=== PATIENT | male | born 1940 | race Caucasian/White ===

== ENCOUNTER 2016-06-13 19:01 | Observation (INO) | payer OTHER ==
[~2016-06-13] VITALS: Ht 175.3 cm; Wt 104.9 kg
[2016-06-13] VITALS (7 sets, daily range): BP systolic 113–159; BP diastolic 73–79; PULSE 85–97; RESP 18–20; TEMP 96–98; O2SAT 90–95
[~2016-06-13 19:01] MED LIST: ADVAI100I; ALBU.5I INH; AMLO2.5T PO; ASPI325T PO; CARV6.252 PO; COMBAER INH; COZA100T PO; FURO20TA PO; GLUCTAB PO; LIPI40TA PO; LUTE20CA PO; MOBI15TA PO; MUCI600T PO; OMEP20TA PO; POTA20PA PO; PRED20 PO; PRED5TAB PO; PREV30CA36 PO; TEMA30CA PO; VITA100L PO; VITA400C28 PO; ZITH250T PO
--- NOTE | 2016-06-13 19:39 | PD ---
HPI Chief Complaint: Respiratory Symptoms Time Seen by Provider: 19:29 Travel History International Travel<30 days: No Contact w/Intl Traveler<30days: No Traveled to known affect area: No History of Present Illness HPI This 75-year-old male is complaining of shortness of breath and cough. He has a history of COPD. He has not noted any fever. Yesterday he started coughing. He called his doctor and was called in a prescription for doxycycline and Tessalon Perles. He has taken this for 2 days and it has not helped. He continues to cough and coughed to the point that he vomits. He has been short of breath. He uses oxygen on an as needed basis at home and used it last night. He stopped smoking 45 years ago. He has a history of triple bypass surgery. He is not aware of fever or chills. He has some chest discomfort with coughing. He had previously been taken off of steroids because of blurred vision PFSH Past Medical History Arthritis: Yes COPD: Yes Coronary Artery Disease: Yes Diabetes: Yes Diminished Hearing: No GERD: Yes Hypertension: Yes Past Surgical History Appendectomy: Yes Cardiac Surgery: Yes (TRIPLE BIPASS IN 2004) Cholecystectomy: Yes Coronary Artery Bypass Graft: Yes Genitourinary Surgery: Yes (VASECTOMY) Tonsillectomy: Yes Social History Alcohol Use: No Tobacco Use: No Substance Use: No Allergies-Medications (Allergen,Severity, Reaction): Coded Allergies: Penicillin (Verified Allergy, Severe, Anaphylaxis, 11/29/13) Reported Meds & Prescriptions Reported Meds & Active Scripts Active Zithromax Z-King (Azithromycin) 250 Mg Tab 250 Mg PO DIRECTED 5 Days 500 MG (2 TABLETS) PO ON DAY 1, THEN 250 MG (1 TABLET) PO ON DAYS 2 TO 5. BEGIN ON 11/30/13 Prevacid (Lansoprazole) 30 Mg Capcr 30 Mg PO DAILY Deltasone (Prednisone) 20 Mg Tab 20 Mg PO DIRECTED 2 TABS PO DAILY FOR 3 DAYS,THEN 1 TAB PO DAILY FOR 3 DAYS. BEGIN ON 11/30/13 Reported Mucinex (Guaifenesin) 600 Mg Tabcr 600 Mg PO BID Combivent (Albuterol/Ipratropium) 14.7 Gm Aer 2 Puff INH Q4HPRN FOR WHEEZING Prednisone 5 Mg Tab 20 Mg PO BID Proventil Conc Ud 0.5% (2.5 Mg/0.5 Ml) (Albuterol Sulfate) 2.5 Mg/0.5 Ml Inha 2.5 Mg INH Q6HPRN Advair Diskus 100/50 (Salmeterol Xinafoate/Fluticasone) Salmeterol/Fluticasone 50/100mcg Inh 14 Inhalation .XX Vitamin B 12 (Cyanocobalamin) 100 Mcg Harvey 100 Mcg PO Mobic (Meloxicam) 15 Mg Tab 15 Mg PO DAILY Metformin Hcl (Metformin HCl) 500 Mg Tab 500 Mg PO BID Vitamin D 400 Unit Tab 400 Unit PO DAILY Aspirin 325 Mg Tab 325 Mg PO DAILY Lutein 20 Mg Cap 20 Mg PO DAILY Furosemide 20 Mg Tab 20 Mg PO DAILY Klor-Con (Potassium Chloride) 20 Meq Pow 10 Meq PO BID Lipitor (Atorvastatin Calcium) 40 Mg Tab 40 Mg PO DAILY Amlodipine Besylate 2.5 Mg Tab 5 Mg PO DAILY Temazepam 30 Mg Cap 30 Mg PO DAILY Cozaar (Losartan Potassium) 100 Mg Tab 100 Mg PO DAILY Omeprazole 20 Mg Tab 20 Mg PO BID Carvedilol 6.25 Mg Tab 6.25 Mg PO BID Review of Systems General / Constitutional: No: Fever, Chills Eyes: Positive: Diploplia, Blurred Vision HENT: No: Headaches, Vertigo Cardiovascular: No: Chest Pain or Discomfort, Palpitations Respiratory: Positive: Cough, Shortness of Breath, Wheezing Gastrointestinal: Positive: Vomiting Genitourinary: No: Urgency, Frequency Musculoskeletal: No: Myalgias, Arthralgias Skin: No Rash, No Itching Neurologic: No: Weakness Hematologic/Lymphatic: No: Easy Bruising Physical Exam Narrative GENERAL:Elderly male in moderate respiratory distress SKIN: Warm and dry. HEAD: Atraumatic. Normocephalic. EYES: Pupils equal and round. No scleral icterus. No injection or drainage. ENT: No nasal bleeding or discharge. Mucous membranes pink and moist. NECK: Trachea midline. No JVD. CARDIOVASCULAR: Regular rate and rhythm. No murmur appreciated. RESPIRATORY: There is accessory muscle use. Bilateral expiratory wheezes GASTROINTESTINAL: Abdomen soft, non-tender, nondistended. Hepatic and splenic margins not palpable. MUSCULOSKELETAL: No obvious deformities. No clubbing. No cyanosis. Trace edema. NEUROLOGICAL: Awake and alert. No obvious cranial nerve deficits. Motor grossly within normal limits. Normal speech. PSYCHIATRIC: Appropriate mood and affect; insight and judgment normal. Data Data Last Documented VS Vital Signs Date Time Temp Pulse Resp B/P Pulse Ox O2 Delivery O2 Flow Rate FiO2 06/13/16 19:15 94 20 153/78 92 Room Air 06/13/16 19:06 98.0 Orders Complete Blood Count With Diff (06/13/16 19:37) Comprehensive Metabolic Panel (06/13/16 19:37) B-Type Natriuretic Peptide (06/13/16 19:37) Troponin I (06/13/16 19:37) Urinalysis - C+S If Indicated (06/13/16 19:37) Iv Access Insert/Monitor (06/13/16 19:37) Electrocardiogram (06/13/16 19:37) Ecg Monitoring (06/13/16 19:37) Oximetry (06/13/16 19:37) Oxygen Administration (06/13/16 19:37) Chest, Single Ap (06/13/16 19:37) Sodium Chloride 0.9% Flush (Ns Flush) (06/13/16 19:45) Methylprednisolone So Succ Inj (Solumedr (06/13/16 19:45) Albuterol-Ipratropium Neb (Duoneb Neb) (06/13/16 19:45) Labs Laboratory Tests Test 06/13/16 06/13/16 20:20 20:25 White Blood Count 9.7 TH/MM3 Red Blood Count 5.03 MIL/MM3 Hemoglobin 15.8 GM/DL Hematocrit 46.0 % Mean Corpuscular Volume 91.4 FL Mean Corpuscular Hemoglobin 31.4 PG Mean Corpuscular Hemoglobin 34.3 % Concent Red Cell Distribution Width 13.6 % Platelet Count 207 TH/MM3 Mean Platelet Volume 8.2 FL Neutrophils (%) (Auto) 73.5 % Lymphocytes (%) (Auto) 11.6 % Monocytes (%) (Auto) 8.7 % Eosinophils (%) (Auto) 5.5 % Basophils (%) (Auto) 0.7 % Neutrophils # (Auto) 7.2 TH/MM3 Lymphocytes # (Auto) 1.1 TH/MM3 Monocytes # (Auto) 0.8 TH/MM3 Eosinophils # (Auto) 0.5 TH/MM3 Basophils # (Auto) 0.1 TH/MM3 CBC Comment DIFF FINAL Differential Comment Urine pH 6.0 Urine Protein NEG mg/dL Urine Glucose (UA) NEG mg/dL Urine Ketones NEG mg/dL Urine Occult Blood NEG Urine Nitrite NEG Urine Bilirubin NEG Urine Leukocyte Esterase NEG MDM Medical Decision Making Medical Screen Exam Complete: Yes Emergency Medical Condition: Yes Medical Record Reviewed: Yes Differential Diagnosis Differential includes pneumonia, CHF, COPD exacerbation Narrative Course X-ray does not show any infiltrates or evidence of congestive failure. His been given Solu-Medrol and repeated nebulizer treatments. After 3 treatments he does feel a bit better but he has persistent bilateral wheezing. Her saturation on 2 L nasal cannula is 94% Diagnosis Primary Impression: COPD exacerbation Disposition: DISCHARGE HOME Condition: Stable Mario Pink MD Jun 13, 2016 19:39
[2016-06-13] MEDS ORDERED: SODIUM CHLORIDE 0.9% FLUSH 5 ML FLUSH IVF PRN (19:45)
[2016-06-13] MEDS ORDERED: methylPREDNISolone SOD SUCC 125 MG/2 ML VIAL IVP ONE (19:45)
--- NOTE | 2016-06-13 19:54 | RADHPO ---
EXAM DATE/TIME: 06/13/2016 19:42 [facility] COMPARISON: CHEST SINGLE AP, November 29, 2013, 3:51. INDICATIONS : Short of breath. MEDICAL HISTORY : Hypertension. Emphysema. Asthma. SURGICAL HISTORY : Cardiac bypass. ENCOUNTER: Initial ACUITY: 1 week PAIN SCORE: 8/10 LOCATION: Bilateral chest FINDINGS: The lungs are clear without infiltrate, nodule, or mass. There is no appreciable pleural effusion fo r technique. Heart and mediastinum are unremarkable. There is evidence for prior median sternotomy. CONCLUSION: No acute cardiopulmonary disease. Isatu Haley MD on June 13, 2016 at 19:53 Board Certified Radiologist. This report was verified electronically.
[2016-06-13] MEDS: RESP: ALBUTEROL 2.5 MG/IPRATROPIUM 0.5 MG NEB (SCH) INH ×2 (20:11→20:14)
[2016-06-13 20:36] LABS: BLOOD, URINE NEG (NEG); GLUCOSE,URINE NEG (NEG); KETONE, URINE NEG (NEG); NITRITE,URINE NEG (NEG)
[2016-06-13 20:36] LABS: AUTOMATED NEUTROPHIL # 7.2 TH/MM3 (1.8-7.7); BASOPHIL # 0.1 TH/MM3 (0-0.2); BASOPHIL % 0.7 % (0.0-2.0); EOSINOPHIL # 0.5 TH/MM3 (0-0.4); EOSINOPHIL % 5.5 % (0.0-4.0); HEMO FLAGS DIFF FINAL; LYMPH % 11.6 % (9.0-44.0); LYMPHOCYTE # 1.1 TH/MM3 (1.0-4.8); MEAN CELL VOLUME 91.4 FL (80.0-100.0); MEAN CORPUSCULAR HEMOGLOBIN 31.4 PG (27.0-34.0); MEAN CORPUSCULAR HGB CONC 34.3 % (32.0-36.0); MONO % 8.7 % (0.0-8.0); NEUT % 73.5 % (16.0-70.0); PLATELET COUNT 207 TH/MM3 (150-450); RED BLOOD COUNT 5.03 MIL/MM3 (4.50-5.90); RED CELL DISTRIBUTION WIDTH 13.6 % (11.6-17.2); WHITE BLOOD COUNT 9.7 TH/MM3 (4.0-11.0)
[2016-06-13 20:48] LABS: CHLORIDE 102 MEQ/L (98-107); SODIUM (NA) 139 MEQ/L (136-145)
[2016-06-13] MEDS ORDERED: VENTAER INH ×2 (20:51)
[2016-06-13] MEDS ORDERED: TIZA2TAB PO (20:51)
[2016-06-13] MEDS ORDERED: TEMA30CA PO (20:51)
[2016-06-13] MEDS ORDERED: ALBU.5I NEB (20:51)
[2016-06-13] MEDS ORDERED: FURO20TA PO (20:51)
[2016-06-13] MEDS ORDERED: CARV6.252 PO (20:51)
[2016-06-13] MEDS ORDERED: POTA10TA8 PO (20:51)
[2016-06-13] MEDS ORDERED: METF500T PO (20:51)
[2016-06-13] MEDS ORDERED: GABA100C4 PO (20:51)
[2016-06-13] MEDS ORDERED: AMLO10TA2 PO (20:51)
[2016-06-13 20:52] LABS: ANION GAP 9 MEQ/L (5-15); BICARBONATE 27.9 MEQ/L (21.0-32.0); BLOOD UREA NITROGEN 12 MG/DL (7-18)
[2016-06-13 20:54] LABS: URINE COLOR YELLOW (YELLW/STRAW)
[2016-06-13 20:55] LABS: ALT (GPT) 20 U/L (12-78); AST (GOT) 12 U/L (15-37); GLOMERULAR FILTRATION RATE 59 ML/MIN (>89)
[2016-06-13 20:55] LABS: WBC, URINE 0-2 /hpf (0-5)
[2016-06-13 20:56] LABS: COMMENT (UR) CULT NOT INDICATED; CULTURE IF INDICATED CULT NOT INDICATED; MUCUS URINE FEW /lpf (OCC); RBC, URINE 0-3 /hpf (0-3); SQUAMOUS EPITHELIAL CELL URINE 0-5 /hpf (0-5)
[2016-06-13 20:57] LABS: TOTAL BILIRUBIN ADULT 0.8 MG/DL (0.2-1.0)
[2016-06-13 20:58] LABS: ALKALINE PHOSPHATASE 135 U/L (45-117)
[2016-06-13] MEDS ORDERED: NALOXONE HCL 0.4 MG/ML AMP IV PRN (21:15)
[2016-06-13] MEDS ORDERED: SODIUM CHLORIDE 0.9% FLUSH 5 ML FLUSH FLUSH PRN (21:15)
[2016-06-13] MEDS ORDERED: RESP: ALBUTEROL 2.5 MG/IPRATROPIUM 0.5 MG NEB (PRN) NEB (21:15)
[2016-06-13] MEDS ORDERED: LOSA100T PO (21:42)
[2016-06-13] MEDS ORDERED: AREDS PO (21:42)
[2016-06-13] MEDS ORDERED: ASPI81CH CHEW (21:42)
[2016-06-13] MEDS ORDERED: ATOR40TA16 PO (21:42)
[2016-06-13] MEDS ORDERED: OMEP20TA PO (21:42)
[2016-06-13] MEDS: RESP: ALBUTEROL 2.5 MG/IPRATROPIUM 0.5 MG NEB (SCH) NEB (22:06)
[2016-06-14] VITALS (8 sets, daily range): BP systolic 132–165; BP diastolic 82–100; PULSE 109–112; RESP 18–20; TEMP 97.8–98.9; O2SAT 92–95
[2016-06-14] MEDS: methylPREDNISolone SOD SUCC 40 MG/1 ML VIAL IV PUSH SCH ×2 (00:07→05:27)
[2016-06-14] MEDS ORDERED: TEMAZEPAM 15 MG CAP PO ONE (01:45)
[2016-06-14] MEDS: RESP: ALBUTEROL 2.5 MG/IPRATROPIUM 0.5 MG NEB (SCH) NEB ×4 (03:46→20:30)
[2016-06-14 05:43] LABS: AUTOMATED NEUTROPHIL # 5.8 TH/MM3 (1.8-7.7); BASOPHIL # 0.1 TH/MM3 (0-0.2); BASOPHIL % 0.9 % (0.0-2.0); EOSINOPHIL % 0.2 % (0.0-4.0); HEMATOCRIT 46.5 % (39.0-51.0); HEMO FLAGS DIFF FINAL; LYMPHOCYTE # 0.7 TH/MM3 (1.0-4.8); MEAN CELL VOLUME 91.3 FL (80.0-100.0); MEAN CORPUSCULAR HGB CONC 32.8 % (32.0-36.0); MONO % 0.6 % (0.0-8.0); NEUT % 88.3 % (16.0-70.0); PLATELET COUNT 207 TH/MM3 (150-450); RED BLOOD COUNT 5.09 MIL/MM3 (4.50-5.90); RED CELL DISTRIBUTION WIDTH 13.4 % (11.6-17.2); WHITE BLOOD COUNT 6.6 TH/MM3 (4.0-11.0)
[2016-06-14 05:55] LABS: BICARBONATE 26.2 MEQ/L (21.0-32.0)
[2016-06-14] MEDS ORDERED: guaiFENesin/CODEINE SYRUP 200 MG/20 MG/10 ML CUP PO PRN (08:45)
[2016-06-14] MEDS ORDERED: guaiFENesin/CODEINE SYRUP 200 MG/20 MG/10 ML CUP PO ONE (08:45)
[2016-06-14] MEDS ORDERED: INFLUENZA VIRUS VACCINE (QUADRIVALENT) 0.5 ML SYR IM ONE (09:00)
[2016-06-14] MEDS: PANTOPRAZOLE SOD 40 MG DELAYED RELEASE TAB PO SCH (09:26)
[2016-06-14] MEDS: ENOXAPARIN SODIUM 40 MG/0.4 ML SYRINGE SQ SCH (09:26)
[2016-06-14] MEDS: SODIUM CHLORIDE 0.9% FLUSH 5 ML FLUSH FLUSH SCH ×2 (09:28→20:09)
--- NOTE | 2016-06-14 10:41 | HHI.HP ---
[facility] Physician Ryan Pineda M.D. Admission Diagnosis COPD EXACERBATION Diagnoses: (1) COPD exacerbation Diagnosis: Principal Chief Complaint: Cough, shortness of breath, dyspnea Travel History International Travel<30 Days: No Contact w/Intl Traveler <30 Da: No Traveled to Known Affected Are: No History of Present Illness 75 year-old male with known history of hypertension, hyperlipidemia, coronary artery disease with three-vessel bypass, gastroesophageal reflux, anxiety, chronic obstructive pulmonary disease who presented to hospital because of 2 day history of cough, shortness of breath. Patient states that he started having symptoms 2 days ago where he was having a cough until he gagged and retched. He states that happened 2 times the first day and 3 times yesterday. He did call his primary medical doctor and they called in a prescription for doxycycline and Tessalon. Patient took the medications for approximately 1 day without any relief. Patient states that after he ate his dinner last night he laid down and had another coughing episode and he vomited up his food and had acute onset of severe shortness of breath last dyspnea so he came to the hospital for evaluation. Patient does have history of chronic affective pulmonary disease with chronic respiratory failure requiring home oxygen. He states that he does not use his oxygen unless his O2 saturations drop below 95. Patient denies any chest pain, diaphoresis, abdominal pain, extremity edema. He states that he does have procedure with his cardiovascular surgery next week for evaluation of his lower extremity vasculature. Review of Systems Constitutional: DENIES: Diaphoretic episodes, Fatigue, Fever, Weight gain, Weight loss, Chills, Dizziness, Change in appetite, Night Sweats Eyes: DENIES: Blurred vision, Diplopia, Eye inflammation, Eye pain, Vision loss , Double Vision Ears, nose, mouth, throat: DENIES: Vertigo, Nasal discharge, Throat pain, Ear Pain, Running Nose, Sinus Pain Respiratory: COMPLAINS OF: Shortness of breath, DENIES: Apneas, Cough, Snoring , Wheezing, Hemoptysis, Sputum production Cardiovascular: DENIES: Chest pain, Palpitations, Syncope, Dyspnea on Exertion , Lower Extremity Edema, Orthopnea Gastrointestinal: COMPLAINS OF: Vomiting, DENIES: Abdominal pain, Black stools , Bloody stools, Constipation, Diarrhea, Nausea, Difficulty Swallowing, Anorexia Neurologic: DENIES: Abnormal gait, Headache, Localized weakness, Paresthesias, Seizures, Speech Problems, Tremor, Poor Balance Past Family Social History Past Medical History Hypertension Hyperlipidemia Coronary artery disease status post CABG Peripheral vascular disease Chronic obstructive pulmonary disease History of tobacco use Chronic respiratory failure oxygen dependent Anxiety Past Surgical History Three-vessel coronary [place] [address] Weber Tonsillectomy Cholecystectomy Vasectomy Reported Medications Reported Meds & Active Scripts Active Reported [Areds] 2 Tab PO DAILY Aspirin 81 Mg Chew 81 Mg CHEW DAILY Omeprazole 20 Mg Tab 20 Mg PO DAILY Atorvastatin (Atorvastatin Calcium) 40 Mg Tab 40 Mg PO DAILY Losartan (Losartan Potassium) 100 Mg Tab 100 Mg PO DAILY Albuterol Neb (Albuterol Sulfate) 2.5 Mg/0.5 Ml Neb 2.5 Mg NEB TID NEB Note: The Albuterol Sulfate Inhalation Solution is concentrated and must be diluted. Read complete instructions carefully before using. Ventolin Hfa 18 GM Inh (Albuterol Sulfate) 90 Mcg/Act Aer 2 Puff INH Q4-6H PRN Furosemide 20 Mg Tab 20 Mg PO DAILY Potassium Chloride CR (Potassium Chloride) 10 Meq Tab 10 Meq PO BID Amlodipine (Amlodipine Besylate) 10 Mg Tab 10 Mg PO DAILY Metformin (Metformin HCl) 500 Mg Tab 500 Mg PO BIDPC With meals Carvedilol 6.25 Mg Tab 6.25 Mg PO BID Gabapentin 100 Mg Cap 100 Mg PO BID Temazepam 30 Mg Cap 30 Mg PO HS Tizanidine (Tizanidine HCl) 2 Mg Tab 2 Mg PO HS Allergies: Coded Allergies: Penicillin (Verified Allergy, Severe, Anaphylaxis, 11/29/13) Family History Reviewed is significant for father having heart disease and stroke. Social History Patient quit smoking 40 years ago, prior to that he smoked up to 3 pack a cigarettes a day since he was 4 years old. Denies any alcohol or illicit drugs Physical Exam Vital Signs Vital Signs Date Time Temp Pulse Resp B/P Pulse Ox O2 Delivery O2 Flow Rate FiO2 06/14/16 08:45 93 21 06/14/16 08:00 98.1 111 20 159/93 93 06/14/16 04:00 97.8 112 20 132/84 94 06/14/16 03:47 93 21 06/13/16 23:18 90 06/13/16 22:30 96.0 85 20 159/79 95 06/13/16 22:06 95 Nasal Cannula 2.00 06/13/16 22:05 91 152/79 94 Nasal Cannula 2 06/13/16 21:05 85 18 113/73 90 Nasal Cannula 2 06/13/16 19:35 94 20 92 Room Air 06/13/16 19:15 94 20 153/78 92 Room Air 06/13/16 19:15 20 92 Room Air 06/13/16 19:15 92 Room Air 06/13/16 19:06 98.0 97 20 132/78 Physical Exam GENERAL: Well-developed, well-nourished, in no acute distress. alert and orientated HEENT: Head is normocephalic without any lesions or masses noted. Facial features are symmetric. Eyes: Pupils equal round reactive to light. Extraocular muscles are intact. Conjunctivae were clear. Oropharyngeal: Pharynx without any erythema edema. Tongue is midline without deviation. Buccal mucosa is moist without any masses or lesions NECK: Supple without any masses. Trachea midline no deviation. No JVD, no bruits are appreciated CARDIAC: Regular rhythm, regular rate. S1/S2 are heard. No murmurs gallops or rubs. LUNGS: Clear to auscultation bilaterally. Expiratory wheezing with prolonged expiratory phase. Nonlabored breathing. ABDOMEN: Soft, nontender. Nondistended. Bowel sounds heard in all 4 quadrants. No organomegaly or masses. Negative rebound, negative guarding EXTREMITIES: No edema, pulses are equal bilaterally. No cyanosis or clubbing NEUROLOGY: Mood and affect appear appropriate. Cranial nerves II through XII grossly intact. Muscle strength 5/5 in upper and lower extremities bilaterally. Deep tendon reflexes are 2+ in upper and lower extremities bilaterally. Laboratory Laboratory Tests Test 06/13/16 06/13/16 06/14/16 20:20 20:25 05:22 White Blood Count 9.7 6.6 Red Blood Count 5.03 5.09 Hemoglobin 15.8 15.3 Hematocrit 46.0 46.5 Mean Corpuscular Volume 91.4 91.3 Mean Corpuscular Hemoglobin 31.4 30.0 Mean Corpuscular Hemoglobin 34.3 32.8 Concent Red Cell Distribution Width 13.6 13.4 Platelet Count 207 207 Mean Platelet Volume 8.2 7.9 Neutrophils (%) (Auto) 73.5 88.3 Lymphocytes (%) (Auto) 11.6 10.0 Monocytes (%) (Auto) 8.7 0.6 Eosinophils (%) (Auto) 5.5 0.2 Basophils (%) (Auto) 0.7 0.9 Neutrophils # (Auto) 7.2 5.8 Lymphocytes # (Auto) 1.1 0.7 Monocytes # (Auto) 0.8 0.0 Eosinophils # (Auto) 0.5 0.0 Basophils # (Auto) 0.1 0.1 CBC Comment DIFF FINAL DIFF FINAL Differential Comment Sodium Level 139 137 Potassium Level 4.0 4.0 Chloride Level 102 101 Carbon Dioxide Level 27.9 26.2 Anion Gap 9 10 Blood Urea Nitrogen 12 14 Creatinine 1.20 1.20 Estimat Glomerular Filtration 59 59 Rate Random Glucose 107 171 Calcium Level 8.6 8.6 Total Bilirubin 0.8 Aspartate Amino Transf 12 (AST/SGOT) Alanine Aminotransferase 20 (ALT/SGPT) Alkaline Phosphatase 135 Troponin I LESS THAN 0.02 B-Type Natriuretic Peptide 8 Total Protein 7.5 Albumin 3.7 Urine Color YELLOW Urine Turbidity CLEAR Urine pH 6.0 Urine Specific Beryl 1.021 Urine Protein NEG Urine Glucose (UA) NEG Urine Ketones NEG Urine Occult Blood NEG Urine Nitrite NEG Urine Bilirubin NEG Urine Leukocyte Esterase NEG Urine RBC 0-3 Urine WBC 0-2 Urine Squamous Epithelial 0-5 Cells Urine Mucus FEW Microscopic Urinalysis Comment CULT NOT INDICATED Result Diagram: 06/14/1652106/14/16521 Imaging Last Impressions Chest X-Ray 06/13/161936 Signed Impressions: Service Date/Time: June 19:42 - CONCLUSION: No acute cardiopulmonary disease. Isatu Haley MD Assessment and Plan Assessment and Plan Chronic obstructive pulmonary disease with exacerbation: Patient does have history of chronic respiratory failure with home oxygen. She does not use it on a regular basis. Patient placed in observation for continued treatment in the hospital. Patient started on Solu-Medrol 40 mg every 6 hours, will continue this as he still has wheezing on exam and is still dyspneic.. Continue nebulizer treatments, start Levaquin. Continue O2 supplementation maintain O2 sats greater 92%. Continue Robitussin-AC for cough suppression. Patient requires admission as he is failed attempt at outpatient treatment for COPD. Hypertension, hyperlipidemia, coronary artery disease: Resume home medications Prophylaxis: DVT prevention: Subcutaneous Lovenox, GI protection secondary to steroids use, Protonix Written by Sanjeev Vegas PA-C, acting as scribe for Dr. Kumari on 06/14/16 at 11:30. The documentation accurately reflects the work and decisions performed face-to- face by Dr. Kumari on 06/14/16 at 11:30. Sanjeev Vegas Jun 14, 2016 10:40 Genesis Kumari MD Jun 14, 2016 13:02
[2016-06-14] MEDS: LEVOFLOXACIN 500 MG TAB PO SCH (11:00)
[2016-06-14] MEDS ORDERED: PANTOPRAZOLE SODIUM 40 MG VIAL IV PUSH ONE (20:00)
[2016-06-14] MEDS ORDERED: cloNIDine HCL 0.1 MG TAB PO ONE (20:00)
[2016-06-14] MEDS: predniSONE 20 MG TAB PO SCH (20:09)
[2016-06-14] MEDS ORDERED: TEMAZEPAM 15 MG CAP PO PRN (21:00)
[2016-06-14] MEDS ORDERED: TEMAZEPAM 15 MG CAP PO SCH (21:00)
--- NOTE | 2016-06-14 23:19 | EKG ---
Date Performed: 06/13/2016 Time Performed: 19:50:44 PTAGE: 75 years EKG: Sinus rhythm Low QRS voltages in precordial leads Borderline ECG PREVIOUS TRACING : 11/29/2013 02.54 DOCTOR: Esther Levine Interpretating Date/Time 06/14/2016 23:15:52
[2016-06-15 00:50] VITALS: BP 132/85; PULSE 92; RESP 20; TEMP 96.3; O2SAT 95
[2016-06-15] MEDS: RESP: ALBUTEROL 2.5 MG/IPRATROPIUM 0.5 MG NEB (SCH) NEB (04:04)
[2016-06-15 04:38] VITALS: BP 138/79; PULSE 89; RESP 18; TEMP 97; O2SAT 95
[2016-06-15] MEDS ORDERED: ACETAMINOPHEN 325 MG TAB PO PRN (07:15)
[2016-06-15] MEDS ORDERED: MAGNESIUM HYDROXIDE SUSP 30 ML CUP PO PRN (07:15)
[2016-06-15] MEDS ORDERED: DOCUSATE SODIUM 100 MG CAP PO PRN (07:15)
[2016-06-15 08:00] VITALS: BP 157/86; PULSE 89; RESP 20; TEMP 97.9; O2SAT 98
--- NOTE | 2016-06-15 08:10 | HHI.PR ---
Subjective Remarks Patient seen and examined with Dr. Kumari today. Follow-up on COPD. Patient states that he is 100% better today. Patient did have some epigastric discomfort last evening, he was given Protonix IV with resolution of his discomfort. Objective Vitals Vital Signs Date Time Temp Pulse Resp B/P Pulse Ox O2 Delivery O2 Flow Rate FiO2 06/15/16 04:38 97.0 89 18 138/79 95 06/15/16 00:50 96.3 92 20 132/85 95 06/14/16 21:09 98.9 110 18 165/100 94 06/14/16 20:30 93 Nasal Cannula 2.00 06/14/16 16:00 98.8 109 20 153/83 95 06/14/16 12:12 98.0 112 20 145/82 92 06/14/16 08:45 93 21 I/O 06/14/16 06/14/16 06/14/16 06/15/16 06/15/16 06/15/16 07:00 15:00 23:00 07:00 15:00 23:00 Intake Total 730 ml 240 ml 0 ml Balance 730 ml 240 ml 0 ml Intake Oral 730 ml 240 ml IV Total 0 ml # Voids 2 3 # Bowel Movements 0 Result Diagram: 06/14/1652106/14/16521 Objective Remarks GENERAL: Well-developed, well-nourished, in no acute distress. alert and orientated HEENT: Head is normocephalic without any lesions or masses noted. Facial features are symmetric. Eyes: Extraocular muscles are intact. Conjunctivae were clear. NECK: Supple without any masses. Trachea midline no deviation. No JVD, no bruits are appreciated CARDIAC: Regular rhythm, regular rate. S1/S2 are heard. No murmurs gallops or rubs. LUNGS: Clear to auscultation bilaterally. No wheeze, rhonchi or rales. No use of accessory muscles on inspiration or expiration. ABDOMEN: Soft, nontender. Nondistended. Bowel sounds heard in all 4 quadrants. No organomegaly or masses. Negative rebound, negative guarding EXTREMITIES: No edema, pulses are equal bilaterally. No cyanosis or clubbing NEUROLOGY: Mood and affect appear appropriate. Cranial nerves II through XII grossly intact. Moving all extremities, speech is clear Urinary Catheter: No Vascular Central Line Catheter: No A/P Assessment and Plan Chronic obstructive pulmonary disease with exacerbation: Patient does have history of chronic respiratory failure with home oxygen. he does not use it on a regular basis. Patient placed in observation for continued treatment in the hospital. Continue prednisone by mouth, nebulizer treatments, Levaquin. Continue O2 supplementation maintain O2 sats greater 92%. Continue Robitussin- AC for cough suppression. Epigastric discomfort last evening: Resolved with Protonix IV. Continue proton pump inhibitor Hypertension, hyperlipidemia, coronary artery disease: Resume home medications Prophylaxis: DVT prevention: Subcutaneous Lovenox, GI protection secondary to steroids use, Protonix Written by Sanjeev Vegas PA-C, acting as scribe for Dr. Kumari on 06/15/16 at 1125. The documentation accurately reflects the work and decisions performed face-to- face by Dr. Kumari on 06/15/16 at 1125. Discharge Planning Discharge planning home in stable condition Activity: Ad quirino. Diet: Healthy heart diet Medications per medication reconciliation Follow-up primary medical doctor in one week Sanjeev Vegas Jun 15, 2016 08:10 Genesis Kumari MD Jun 15, 2016 12:15
[2016-06-15] MEDS ORDERED: ASPIRIN 81 MG CHEW TAB CHEW SCH (09:00)
[2016-06-15] MEDS ORDERED: ATORVASTATIN 40 MG TAB PO SCH (09:00)
[2016-06-15] MEDS ORDERED: FUROSEMIDE 20 MG TAB PO SCH (09:00)
[2016-06-15] MEDS ORDERED: CARVEDILOL 6.25 MG TAB PO SCH (09:00)
[2016-06-15] MEDS ORDERED: POTASSIUM CHLORIDE 10 MEQ CONTROLLED RELEASE TAB PO SCH (09:00)
[2016-06-15] MEDS ORDERED: LOSARTAN 50 MG TAB PO SCH (09:00)
[2016-06-15] MEDS ORDERED: GABAPENTIN 100 MG CAP PO SCH (09:00)
[2016-06-15] MEDS ORDERED: LEVA500T PO (09:37)
[2016-06-15] MEDS ORDERED: PRED5PAK PO (09:37)
--- NOTE | 2016-06-15 09:37 | HHI.DCPOC ---
Discharge Care Plan Diagnosis: (1) COPD exacerbation Goals to Promote Your Health * To prevent worsening of your condition and complications * To maintain your health at the optimal level Directions to Meet Your Goals Take your medications as prescribed Follow your dietary instruction Follow activity as directed Keep your appointments as scheduled Take your immunizations and boosters as scheduled If your symptoms worsen call your PCP, if no PCP go to Urgent Care Center or Emergency Room Smoking is Dangerous to Your Health. Avoid second hand smoke Call the 24-hour hour crisis hotline for domestic abuse at Sanjeev Vegas Jun 15, 2016 09:37
[2016-06-15] MEDS: LEVOFLOXACIN 500 MG TAB PO SCH (09:52)
[2016-06-15] MEDS: predniSONE 20 MG TAB PO SCH (09:52)
[2016-06-15] MEDS: PANTOPRAZOLE SOD 40 MG DELAYED RELEASE TAB PO SCH (09:53)
[2016-06-15] MEDS: ENOXAPARIN SODIUM 40 MG/0.4 ML SYRINGE SQ SCH (09:53)
[2016-06-15] MEDS: SODIUM CHLORIDE 0.9% FLUSH 5 ML FLUSH FLUSH SCH (09:57)
[2016-06-15 12:00] VITALS: BP 128/84; PULSE 81; RESP 20; TEMP 97.7; O2SAT 94
[2016-06-15] MEDS ORDERED: RESP: ALBUTEROL 2.5 MG/IPRATROPIUM 0.5 MG NEB (SCH) NEB (14:00)
--- NOTE | 2016-06-15 19:25 | EKG ---
Date Performed: 06/14/2016 Time Performed: 20:06:32 PTAGE: 75 years EKG: Sinus tachycardia. Anterior T wave changes are nonspecific Low QRS voltages in precordial l birgit Since previous tracing, no significant change noted Borderline ECG PREVIOUS TRACING : 06/13/2016 19.50 DOCTOR: Thien Ochoa Interpretating Date/Time 06/15/2016 19:24:42
== END 2016-06-15 12:58 | disposition home or self-care (01) ==
LOC: PHED 19:01 → PHEDA 21:04 → PH3A 22:24
PROVIDERS: ADMIT Family Medicine; ATTEND Family Medicine
DX: J44.1 Chronic obstructive pulmonary disease with (acute) exacerbation (principal); J96.10 Chronic respiratory failure, unspecified whether with hypoxia or hypercapnia; R11.10 Vomiting, unspecified; R06.02 Shortness of breath; I10 Essential (primary) hypertension; K21.9 Gastro-esophageal reflux disease without esophagitis; E11.9 Type 2 diabetes mellitus without complications; I25.10 Atherosclerotic heart disease of native coronary artery without angina pectoris; H53.8 Other visual disturbances; E78.5 Hyperlipidemia, unspecified; I73.9 Peripheral vascular disease, unspecified; F41.9 Anxiety disorder, unspecified; Z79.82 Long term (current) use of aspirin; Z95.1 Presence of aortocoronary bypass graft; Z99.81 Dependence on supplemental oxygen; Z23 Encounter for immunization
CPT/HCPCS: 71010; 80048; 80053; 81001; 83880; 84484; 85025; 93005; 94640; 94664; 96374; 99285; C9113; G0008; G0378; J1650; J2920; J2930; J7512; Q2038; 90471; 90686